=== PATIENT | female | born 1995 | race African-American/Black ===

== ENCOUNTER 2016-06-04 01:30 | Emergency (ER) | payer OTHER ==
[~2016-06-04] VITALS: Ht 167.6 cm; Wt 67.1 kg
[2016-06-04 01:34] VITALS: Ht 167.6 cm; Wt 67.1 kg
[2016-06-04 01:40] VITALS: O2SAT 98
[2016-06-04 02:25] LABS: BUN/CREATININE RATIO 8.4 (10-20); CALCIUM 8.5 mg/dl (8.5-10.1); CREATININE 0.69 mg/dl (0.60-1.20)
[2016-06-04] MEDS ORDERED: POTASSIUM CHLORIDE 10 MEQ TABCR PO STA (02:28)
[2016-06-04] MEDS ORDERED: POTASSIUM CHLORIDE 10 MEQ TABCR ONE (06:04)
--- NOTE | 2016-06-04 06:05 | EMERGENCY ROOM VISIT NOTE ---
History First contact with patient: 01:33 Chief Complaint: ALCOHOL OVERDOSE Stated Complaint: ALCOHOL OD Nursing Triage Summary: Pt brought in by friend. Pt was out drinking with friends. While at the bar pt starting vomiting and was asked to leave. Friend attempted to take pt back to her apartment when she passed out. Friend called an UBER to bring pt to the ER. Denies any trauma. Friend reports pt was drinking unknown amounts of Liane and other types of liquor. Pt unconscious. Responds minimally to painful stimuli. History of Present Illness The patient is a 20 year old female who presents to the Emergency Room with complaints of alcohol overdose. Patient was unresponsive for her friend and her friend brought her to the ER. Patient is passed out and unable to obtain history. According to the friends she had a lot of alcohol tonight. No drug use. No fall. Review of Systems Unable to obtain secondary to altered mental status from alcohol intoxication Past Medical/Surgical History Unable to obtain secondary to altered mental status from alcohol intoxication Social History Smoking Status: Unknown if Ever Smoked Occupation Status: [employer] student Physical Exam Vital Signs Date Time Temp Pulse Resp B/P Pulse Ox O2 Delivery O2 Flow Rate FiO2 06/04/16 05:19 100 06/04/16 04:36 107 16 99 Room Air 06/04/16 04:31 112/76 06/04/16 04:06 86 16 98 06/04/16 04:01 100/66 06/04/16 03:36 85 16 98 06/04/16 03:31 99/69 06/04/16 03:06 101 15 99 06/04/16 03:01 119/86 06/04/16 03:00 99 23 97 Room Air 06/04/16 02:31 108/72 06/04/16 02:30 77 18 98 06/04/16 02:01 119/76 06/04/16 02:00 88 20 98 06/04/16 01:40 98 Room Air 06/04/16 01:40 98 Room Air 06/04/16 01:37 83 06/04/16 01:34 36.4 86 16 113/80 99 Room Air 06/04/16 01:30 113/80 Physical Exam PHYSICAL EXAM: VITALS: Vitals are noted on the nurse's note and reviewed by myself. Vital signs stable. GENERAL: Female with alcohol order who is comatose, in no acute distress, nondiaphoretic, well-developed well-nourished. The patient is visibly intoxicated. SKIN: The skin was without obvious lacerations, abrasions, or rashes. There is no tenting of the skin. Capillary reflex less than 2 seconds. HEENT: Normocephalic, atraumatic. PERRLA. EOMI. Conjunctiva with mild injection without icterus. Tympanic membranes without erythema or effusion bilaterally no hemotympanum. External auditory canals are clear. Nares patent bilaterally. No epistaxis. Oropharynx without erythema or exudate. Uvula midline. Oral mucosal moist. No lymphadenopathy. Neck is supple without cervical spine tenderness. HEART: Regular rate and rhythm without murmurs gallops or rubs. Peripheral pulses 2+. LUNGS: Clear to auscultation bilaterally without wheezes, rales or rhonchi. ABDOMEN: Positive bowel sounds x 4. Normal tympanic percussion. Soft, nontender, without masses or organomegaly. MUSCULOSKELETAL: Gross motor function of the upper and lower extremities intact. The patient has a staggering gait. NEUROLOGIC: The patient is visibly intoxicated. Once they were more sober they were alert and oriented to person place and time. Gag reflex intact. Medical Decision & Procedures Laboratory Results 06/04/16 01:55 Test 06/04/16 01:55 Anion Gap 11.0 mmol/L (3-11) Est Creatinine Clear Calc Drug Dose 120.7 ml/min Estimated GFR () 144.2 Estimated GFR (Non- 124.4 BUN/Creatinine Ratio 8.4 (10-20) Calcium Level 8.5 mg/dl (8.5-10.1) Ethyl Alcohol mg/dL 248.0 mg/dl (0-3) ED Course Prior records/ancillary studies reviewed. Triage Nursing notes reviewed. Additional history obtained from friend The patient's history was concerning for altered mental status and a possible alcohol overdose. Differential diagnosis: Etiologies such as alcohol intoxication, toxicologic, infection, hypoglycemia, electrolyte abnormalities, cardiac sources, intracerebral event, neurologic, as well as others were entertained. Physical examination: As above. The patient is clinically intoxicated. no trauma noted. ER treatment provided: Monitoring Aspiration precautions The patient was frequently reassessed. Diagnostic interpretation by me: Cardiac monitoring did not reveal any evidence of dysrhythmia. The labs revealed hypokalemia and this is replaced orally. The patient's blood alcohol level was 248 mg/dL. The patient's history was reviewed once they were more coherent and their intoxication cleared. The patient states they have been in good health recently and had no medical complaints. The patient admitted to consuming alcohol. No additional concerning findings were noted. The patient complained of no symptoms to suggest assault. This appears to be consistent with an isolated overdose of alcohol. By the evaluation outlined above emergent etiologies such as trauma, infection, hypoglycemia, electrolyte abnormalities, cardiac sources, intracerebral event, neurologic,as well as others were deemed relatively unlikely. The patient was informed about the findings as listed above. The patient was counseled on the dangers of excessive alcohol use. I gave my usual and customary discussion regarding this issue. All questions were answered and the patient was pleased with the treatment. Return instructions were outlined and the patient was discharged in stable condition once their mental status improved and a safe destination was confirmed. Outpatient prescription management: None Referral: The patient was referred back to their primary care physician for follow-up in 2 to 3 days for a recheck of their current condition. Medical Decision As above Impression Primary Impression: Alcohol use with intoxication Additional Impression: Hypokalemia Departure Information Dispostion Home / Self-Care Condition GOOD Referrals No Doctor, Assigned (PCP) Patient Instructions My [facility] Additional Instructions Keep well-hydrated. Tylenol every 6 hours as needed for pain (Maximum 3000 mg Tylenol in 24 hr period). Follow up with family doctor and/or health services as needed. No driving for the next 24 hours. Recommend no alcohol for the next 48 hours and avoid binge drinking in the future. Return to ER sooner for chest pain, abdominal pain, worsening signs or symptoms or as needed. Problem Qualifiers
[2016-06-04 06:32] VITALS: BP 95/67; PULSE 104; TEMP 36.4; O2SAT 98
== END 2016-06-04 06:33 | disposition home or self-care (01) ==
LOC: C.EDB 01:32 → C.EDA 06:33
DX: F10.929 Alcohol use, unspecified with intoxication, unspecified (principal); E87.6 Hypokalemia